=== PATIENT | female | born 1965 | race Caucasian/White ===

== ENCOUNTER → 2018-02-27 | Outpatient (CLI) | payer OTHER ==
[~2018-02-27] MED LIST: ALPR-475 PO; CALC1CAP8 PO; GLUC1TAB91 PO; HYDR-3237 PO; MAGN250T8 PO; MULT-224 PO; POTA99TA3 PO; VITA400T6 PO
[2018-02-27 10:20] LABS: BASOPHILS # (AUTO) 0.04 x10^3/uL (0-0.1); BASOPHILS % (AUTO) 1 % (0-1); EOSINOPHILS # (AUTO) 0.32 x10^3/uL (0-0.4); EOSINOPHILS % (AUTO) 4 % (1-7); LYMPHOCYTES # (AUTO) 2.03 x10^3/uL (1-3.4); LYMPHOCYTES % (AUTO) 26 % (22-44); MD NO; MEAN CORPUSCULAR HEMOGLOBIN 32.2 pg (27.0-34.8); MEAN CORPUSCULAR VOLUME 94.6 fL (80-100); MONOCYTES # (AUTO) 0.62 x10^3/uL (0.2-0.8); MONOCYTES % (AUTO) 8 % (2-9); NEUTROPHILS # (AUTO) 4.81 x10^3/uL (1.8-6.8); NEUTROPHILS % (AUTO) 62 % (42-75); PLATELET COUNT 272 x10^3/uL (130-400); RED BLOOD COUNT 4.54 x10^6/uL (3.82-5.3); RED CELL DISTRIBUTION WIDTH 12.7 % (9.6-15.2)
[2018-02-27 10:28] LABS: ALANINE AMINOTRANSFERASE 51 U/L (12-78); ALBUMIN 3.8 g/dL (3.4-5.0); ANION GAP 4 mmol/L (5-15); CALCIUM 8.8 mg/dL (8.5-10.1); CHLORIDE 107 mmol/L (98-107)
[2018-02-27 10:31] LABS: ALKALINE PHOSPHATASE 102 U/L (45-117); BILIRUBIN,TOTAL 0.6 mg/dL (0.2-1.0); CREATININE 0.84 mg/dL (0.55-1.02); TOTAL PROTEIN 7.7 g/dL (6.4-8.2)
[2018-02-27 10:33] LABS: INTERNATIONAL NORMALIZED RATIO 0.87 (0.93-1.1); PROTHROMBIN TIME 9.1 Seconds (9.6-11.5)
[2018-02-27 10:35] LABS: MICROSCOPIC INDICATED
[2018-02-27 10:36] LABS: CULTURE INDICATED? YES
== END | disposition home or self-care (01) ==
LOC: STAR 09:11
PROVIDERS: ATTEND Neurological Surgery
DX: Z01.818 Encounter for other preprocedural examination (principal); M48.02 Spinal stenosis, cervical region; M50.00 Cervical disc disorder with myelopathy, unspecified cervical region
CPT/HCPCS: 36415; 71046; 80053; 81001; 85025; 85610; 85730; 87086; 93005

== ENCOUNTER 2018-03-08 05:24 | Inpatient (IN) | payer OTHER ==
[2018-02-27 09:48] VITALS: BP 136/71
[~2018-03-08] VITALS: Ht 162.6 cm; Wt 91.4 kg
[2018-03-08] MEDS ORDERED: LACTATED RINGERS 1,000 ML IV SCH (06:06)
[2018-03-08] MEDS ORDERED: THROMBIN 5,000 UNIT VIAL TP ONE (06:06)
[2018-03-08] MEDS ORDERED: BUPIVACAINE/PF-EPI 0.5% 1:200K ONE (06:06)
[2018-03-08] MEDS ORDERED: BACITRACIN 50,000 UNIT ONE (06:07)
[2018-03-08] MEDS ORDERED: LIDOCAINE-MPF 1%, 2ML INFIL ONE (06:30)
[2018-03-08] MEDS ORDERED: ONDANSETRON 2MG/ML, 2ML ONE (07:03)
[2018-03-08] MEDS ORDERED: PROPOFOL 10 MG/ML, 50ML ONE (07:03)
[2018-03-08] MEDS ORDERED: CEFAZOLIN 1,000 MG ONE (07:03)
[2018-03-08] MEDS ORDERED: DEXAMETHASONE 4 MG/ML, 1ML ONE (07:03)
[2018-03-08] MEDS ORDERED: SUCCINYLCHOLINE 20 MG/ML, 10ML ONE (07:03)
[2018-03-08] MEDS ORDERED: FENTANYL PF 100 MCG/2ML IV PRN (08:00)
[2018-03-08] MEDS ORDERED: OXYcodone 5 MG/5 ML ORAL.SOL UDC PO PRN (08:00)
[2018-03-08] MEDS ORDERED: PROMETHAZINE 25 MG/ML, 1ML IV PRN (08:00)
[2018-03-08] MEDS ORDERED: ACETAMINOPHEN 325 MG TABLET PO PRN (08:00)
[2018-03-08] MEDS ORDERED: HYDROmorphone 2 MG/ML, 1ML ONE (08:59)
[2018-03-08] MEDS ORDERED: METHOCARBAMOL 750 MG TABLET ONE (08:59)
[2018-03-08] MEDS ORDERED: PHARMACY MAY ADJ FOR RENAL FX MC PRN (09:00)
[2018-03-08] MEDS ORDERED: MORPHINE SULFATE 4 MG/ML, 1ML IVPush PRN (09:00)
[2018-03-08] MEDS ORDERED: OXYcodone/APAP 5/325MG TABLET PO PRN (09:00)
[2018-03-08] MEDS ORDERED: BISACODYL 10 MG SUPP PR PRN (09:00)
[2018-03-08] MEDS ORDERED: SENNA/DOCUSATE TABLET PO PRN (09:00)
[2018-03-08] MEDS ORDERED: LABETALOL 5MG/ML, 20ML IVPush PRN (09:00)
[2018-03-08] MEDS ORDERED: MAGNESIUM HYDROXIDE 8%, 30ML UDC PO PRN (09:00)
[2018-03-08] MEDS ORDERED: PROMETHAZINE 25 MG/ML, 1ML IM PRN (09:00)
[2018-03-08] MEDS ORDERED: DIPHENHYDRAMINE 50 MG CAPSULE PO PRN (09:00)
[2018-03-08] MEDS ORDERED: DIPHENHYDRAMINE 50 MG/ML, 1ML IVPush PRN (09:00)
[2018-03-08] MEDS: METHOCARBAMOL 750 MG TABLET PO PRN ×2 (09:02→17:10)
[2018-03-08] MEDS: HYDROmorphone 1 MG/ML, 1ML IV PRN ×2 (09:02→09:16)
[2018-03-08 10:00] VITALS: BP 129/84
[2018-03-08] MEDS ORDERED: ANCEF MC SCH (10:00)
[2018-03-08] MEDS ORDERED: CEFAZOLIN PMX 1GM/50ML 50 ML IVPB SCH (11:00)
[2018-03-08] MEDS: ONDANSETRON 2MG/ML, 2ML IVPush PRN ×2 (11:50→18:39)
[2018-03-08 12:42] VITALS: BP 129/87
[2018-03-08] MEDS: HYDROcodone/APAP 5/325 TABLET PO PRN ×3 (14:28→23:57)
[2018-03-08] MEDS: CEFAZOLIN PMX 1GM/50ML 50 ML IVPB SCH (17:10)
[2018-03-08 19:49] VITALS: BP 124/73
[2018-03-09] MEDS: CEFAZOLIN PMX 1GM/50ML 50 ML IVPB SCH (01:05)
[2018-03-09] MEDS: METHOCARBAMOL 750 MG TABLET PO PRN ×2 (01:10→10:01)
[2018-03-09] MEDS: HYDROcodone/APAP 5/325 TABLET PO PRN (03:58)
[2018-03-09 04:34] VITALS: BP 134/76
[2018-03-09 08:30] VITALS: BP 131/83
[2018-03-09] MEDS ORDERED: OXYC-302 PO (09:25)
[2018-03-09] MEDS ORDERED: METH750T87 PO (09:25)
[2018-03-09] MEDS ORDERED: ONDA4TAB10 PO (09:25)
[2018-03-09] MEDS ORDERED: ENOXAPARIN 40 MG/0.4 ML SQ SCH (11:00)
[2018-03-09 11:50] VITALS: BP 144/82
== END 2018-03-09 12:41 | disposition home or self-care (01) | DRG 518 ==
LOC: ORIP 05:24 → 4NOR 09:54 → DCLOUNGE 03-09 12:07
PROVIDERS: ADMIT Neurological Surgery; ATTEND Neurological Surgery
PROC: 0RR30JZ Replacement of Cervical Vertebral Disc with Synthetic Substitute, Open Approach (ICD-10-PCS; 2018-03-08)
PROC: 00NW0ZZ Release Cervical Spinal Cord, Open Approach (ICD-10-PCS; 2018-03-08)
PROC: 0PB30ZZ Excision of Cervical Vertebra, Open Approach (ICD-10-PCS; principal; 2018-03-08 07:00)
DX: M48.02 Spinal stenosis, cervical region (principal); M50.021 Cervical disc disorder at C4-C5 level with myelopathy; M50.121 Cervical disc disorder at C4-C5 level with radiculopathy
CPT/HCPCS: 72040; C1713; J0690; J1100; J1170; J1650; J2250; J2405; J2704; J3010; C1762; J0330; J7120